=== PATIENT | female | born 1950 | race Caucasian/White ===

== ENCOUNTER → 2023-05-15 10:09 | Outpatient (POV) | payer MEDICARE, OTHER, SELFPAY ==
--- NOTE | 2023-05-15 10:24 | EXP.PAIN.OV ---
HPI Data of Consult Patient: new to practice Consult date: 05/15/23 Requesting Physician: Tabatha Murphy APRN Primary Care Provider: Rei Robison Consult Narrative Reason for consult: Low back pain, bilateral hip pain, leg pain History of present illness: Ms. Iniguez is a 72 year old female who presents today as a new patient. She is a referral from the [facility]. Today she rates her pain a 8 out of 10. Patient denies any specific trauma or injury that has worsened her pain today. Patient states that she is continue to have low back and leg issues along with her hip pain for some time. Patient does describe this as an aching, throbbing sensation that is worse with increased activity or ambulation. Patient does states she has some numbness and tingling into her lower extremities. Patient does state the pain interferes with her ability perform activities of daily living such as cooking and cleaning. Patient has previously had lumbar epidural injections as well as thoracic and SI injections. Patient states that she had good improvement with her epidurals providing more than 50% relief however she states that she feels she is back at her baseline today. Patient does state in the past she has had the SI injections however these did not typically provide as significant relief. Patient is currently managed with meloxicam 15 mg daily, tizanidine 4 mg twice daily as needed from outside providers. Patient denies any side effects from these medications. She does state that the meloxicam she has been on for quite some time and does not feel that it does as significantly as initially. Patient states she has tried Tylenol and ibuprofen along with heat and ice and topicals with minimal relief. Patient does state that she has recently had a bout of cellulitis however this is now healed. Patient states she has had previous imaging done at [facility] however states it has been back in 2021. Patient is interested in any help we may be able to provide. Patient is currently prescribed clonazepam 0.5 mg daily from an outside provider. Her Marcello has been reviewed and is appropriate. CC: Tabatha Murphy APRN [facility] Disclaimer: The information contained in this section may have been updated after the patient was seen, as this information can be updated by other users. Medical History (Updated 05/15/23 @ 13:14 by Tabatha Murphy APRN) Anxiety COPD (chronic obstructive pulmonary disease) DDD (degenerative disc disease), lumbar Depression GERD (gastroesophageal reflux disease) HLD (hyperlipidemia) HTN (hypertension) O2 dependent Surgical History H/O tubal ligation Hx of cholecystectomy Family History (Updated 05/15/23 @ 11:07 by Nikki Salmeron RN) Other Heart disease Social History (Updated 05/15/23 @ 11:08 by Nikki Salmeron RN) Smoking Status: Never smoker alcohol intake: never current occupational status: retired Travel in the last 8 weeks: None Review of Systems Review of Systems Review of systems:: pertinent systems reviewed and negative unless documented below Review of systems (narrative): Review of Systems: General: No recent weight changes, no fever, no sleep disturbances Respiratory: No cough, no shortness of air, no recurring pulmonary infections Cardiovascular/peripheral vascular: No chest pain, no palpitations, no edema, no shortness of breath Gastrointestinal: No new onset incontinence, normal bowel movements reported Genitourinary: No new onset incontinence Musculoskeletal: Low back pain, bilateral hip pain, leg pain Psychiatric: [Normal mood/affect] Neurological: [Denies weakness in extremities], [denies balance issues] Meds Home Medications and Allergies Home Medications Medication Instructions Recorded Confirmed Type albuterol sulfate 90 mcg/actuation 2 inh inhalation QIDP PRN 05/15/23 05/15/23 History aerosol inhaler Breathing Problems atorvastatin 40 mg tablet 40 mg PO DAILY High Cholesterol 05/15/23 05/15/23 History clonazepam 0.5 mg tablet 0.5 mg PO TIDP PRN Anxiety 05/15/23 05/15/23 History duloxetine 60 mg capsule,delayed 60 mg PO DAILY MOOD 05/15/23 05/15/23 History release fluticasone fur. 200 mcg-umeclid 1 inh inhalation DAILY Breathing 05/15/23 05/15/23 History 62.5 mcg-vilant 25 mcg Problems inhalat.powder (Trelegy Ellipta) meloxicam 15 mg tablet 15 mg PO DAILY Pain 05/15/23 05/15/23 History omeprazole 40 mg capsule,delayed 40 mg PO DAILY GERD 05/15/23 05/15/23 History release tizanidine 4 mg tablet 4 mg PO BID Pain 05/15/23 05/15/23 History New Prescriptions to Start Prescriptions: Allergies Allergy/AdvReac Type Severity Reaction Status Date / Time No Known Allergies Allergy Verified 05/15/23 10:36 Objective Narrative: Physical Exam: General: Alert and oriented x3, no acute distress, pleasant and cooperative Lungs: Respirations even and unlabored, symmetrical chest expansion Eyes: PERRL Musculoskeletal: Flexion and extension of lumbar [spine] somewhat guarded secondary to pain, [antalgic gait noted] point tenderness along bilateral SIs with a positive bilateral Nelli's, Rachel's, Gaenslen's, compression and distraction exam, positive bilateral leg raise Neurological: Speech clear, no gross sensory deficit Assessment and Plan *Assessment and plan (1) Degenerative disc disease, thoracic: Status: Acute Category: Medical Code(s): M51.34 - Other intervertebral disc degeneration, thoracic region (2) Lumbar radiculopathy: Status: Acute Category: Medical Code(s): M54.16 - Radiculopathy, lumbar region (3) Bilateral sacroiliitis: Status: Acute Category: Medical Code(s): M46.1 - Sacroiliitis, not elsewhere classified (4) Chronic pain syndrome: Status: Acute Category: Medical Code(s): G89.4 - Chronic pain syndrome Plan Patient is experiencing significant pain in her low back, hips and legs. Patient had limited range of motion of her lumbar spine today along with point tenderness at her bilateral SIs and a positive bilateral Nelli's, Rachel's, Gaenslen's, compression and distraction exam along with positive bilateral leg raises. I have discussed with the patient that she may benefit from a SI injection as well as lumbar epidural steroid injection. Risk and benefits of both of these injections were discussed with the patient and she would like to proceed forward with a lumbar epidural. Patient states that she did not have significant relief with her first SI injection. Patient is not on any blood thinners. I will send in an order of compounded cream. I have also discussed with the patient that I will send in a 5-day dose of prednisone 20 mg twice daily. I did discuss thoroughly with the patient regarding her meloxicam that we could try diclofenac however after additional discussion patient has had a recent episode of altered kidney function that she stated was back in February as well as patient stated that she ended up having a cardiac cath in the past with no acute findings however does state that she has mitral valve prolapse for 50+ years. I have counseled the patient due to these findings I we will call and get a copy of her most recent lab work and I have counseled the patient that I will hold off ordering the diclofenac and that in future it may not be beneficial for her to be on any NSAIDs due to her history of kidney and heart related issues. Patient will be scheduled for an LESI L4-L5 under fluoroscopy. Patient has been instructed to contact the clinic with any concerns before the next appointment. Dr. Ross has reviewed this note and agrees with this plan of care. This note was dictated using voice recognition software and make contain errors or omissions. We did get a copy of her BMP levels that does have her GFR at 88. Although this is within normal limits due to the history of altered kidney function and mitral valve prolapse I will not prescribe any NSAIDs for this patient.
[2023-05-15 10:31] VITALS: BP 143/80; PULSE 80; RESP 18; O2SAT 91; BMI 22.1
== END | disposition home or self-care (01) ==
PROVIDERS: PCP Family Medicine; Visit Provider Nurse Practitioner Family
DX: M51.34 Other intervertebral disc degeneration, thoracic region (principal); M54.16 Radiculopathy, lumbar region; M46.1 Sacroiliitis, not elsewhere classified; G89.4 Chronic pain syndrome
CPT/HCPCS: 99202; G0463

== ENCOUNTER 2023-05-28 09:35 | Day surgery (SDC) | payer MEDICARE, OTHER, SELFPAY ==
[2023-05-28 10:07] VITALS: BP 193/110; PULSE 90; RESP 18; TEMP 36.1; O2SAT 90; BMI 22.1
[2023-05-28 10:41] VITALS: BP 155/101; PULSE 80; RESP 18; O2SAT 92
[2023-05-28] MEDS: methylPREDNISolone ACETATE 80MG/ML VIAL 80 MG (10:41)
[2023-05-28 10:42] VITALS: BP 155/101; PULSE 76; RESP 18; O2SAT 92
[2023-05-28 10:45] VITALS: BP 146/83; PULSE 80; RESP 18; O2SAT 90
--- NOTE | 2023-05-28 10:46 | P.PCN_ITS ---
Procedure Date: 05/28/23 Time: 10:35 Anesthesiologist:: Salazar Barboza CRNA Complications:: None Pre-procedure Diagnosis:: Degenerative disc lumbar spine multilevels. Lumbar radiculopathy. Post-procedure Diagnosis:: Same. Indications for Procedure:: Patient is a pleasant 72-year-old female comes our clinic today for lumbar epidural steroid injection. She has had moderate improvement in terms of her overall low back pain as well as bilateral hip and leg radicular symptoms with previous injections at the L4-5 level. Patient rates her pain today 7/10. Procedure Details:: Procedure: Lumbar epidural steroid injection under fluoroscopy Informed consent was obtained and the risks and benefits of the procedure were explained to the patient. The patient was taken to the procedure room and noninvasive monitors placed, including noninvasive blood pressure cuff and pulse oximeter. The back was viewed using C-arm Fluoroscopy and prepped using Chloraprep as a cleansing solution and the L4-L5 interspace was palpated. Skin and subcutaneous tissues were anesthetized using lidocaine 1.5% and a 25-gauge needle. After this, an 18-gauge Touhy epidural needle was placed into the L4-L5 interspace and advanced using fluoroscopic guidance and loss of resistance to air until the epidural space was encountered. After confirmation of needle placement in the epidural space, with dye, a solution containing normal saline, 3 mL and Depo-Medrol 80 mg were incrementally injected into the lumbar epidural space. The patient tolerated the procedure well with no complications. The patient was observed in the Pain Clinic and then discharged home neur ologically intact. Plan and Disposition:: Patient was discharged without incident.
== END 2023-05-28 10:45 | disposition home or self-care (01) ==
PROVIDERS: PCP Family Medicine; Visit Provider Nurse Anesthetist, Certified Registered
DX: M51.16 Intervertebral disc disorders with radiculopathy, lumbar region (principal)
CPT/HCPCS: 62323; J1040

== ENCOUNTER → 2023-06-12 13:01 | Outpatient (POV) | payer MEDICARE, OTHER, SELFPAY ==
--- NOTE | 2023-06-12 13:09 | EXP.PAIN.SOA ---
[facility] Pain Management SOAP Note Subjective:: Patient is a pleasant 72-year-old female who presents today for follow-up of lumbar epidural steroid injection L4-L5 on 05/28/2023. We are currently treating the patient for degenerative disc disease of thoracic spine with lumbar radiculopathy symptoms, chronic pain syndrome, bilateral sacroiliitis. Today she rates her pain a 7 out of 10. Patient states that she did have at least 50% from this injection however she has been experiencing more pain in and around her hips and low back. She describes it as an aching, throbbing sensation and denies any radiating symptoms down her legs. She states the pain does interfere with her ability perform activities of daily living such as cooking and cleaning. She states the pain is worse with increased activity or prolonged positioning. At our last visit she did have significant findings for bilateral sacroiliitis. We had discussed doing these injections after her lumbar epidural and she does state that she is interested in this option. Patient did get the compounded cream that was prescribed to her and states that it did significantly help. Her Marcello has been reviewed and is appropriate. Review of Systems: General: No recent weight changes, no fever, no sleep disturbances Respiratory: No cough, no shortness of air, no recurring pulmonary infections Cardiovascular/peripheral vascular: No chest pain, no palpitations, no edema, no shortness of breath Gastrointestinal: No new onset incontinence, normal bowel movements reported Genitourinary: No new onset incontinence Musculoskeletal: Low back pain, bilateral hip pain Psychiatric: [Normal mood/affect] Neurological: [Denies weakness in extremities], [denies balance issues] Objective:: Physical Exam: General: Alert and oriented x3, no acute distress, pleasant and cooperative Lungs: Respirations even and unlabored, symmetrical chest expansion Eyes: PERRL Musculoskeletal: Flexion and extension of lumbar [spine] somewhat guarded secondary to pain, [antalgic gait noted] extreme point tenderness along bilateral SIs with positive bilateral Nelli's, Rachel's, Gaenslen's, compression and distraction exam Neurological: Speech clear, no gross sensory deficit Assessment:: Degenerative disc disease of thoracic and lumbar spine with thoracic and lumbar radiculopathy symptoms, sacroiliitis, chronic pain syndrome Plan:: Patient is experiencing significant pain in her low back along her bilateral hips. Patient did have extreme point tenderness of her bilateral SIs with a positive bilateral Nelli's, Rachel's, Gaenslen's, compression and distraction exam. I have discussed with the patient that she may benefit from bilateral SI injections. Risk and benefits were discussed with patient and she would like to proceed forward with this plan of care. Patient will be scheduled for bilateral SI injections under fluoroscopy. Patient has been instructed to contact the clinic with any concerns before the next appointment. Dr. Ross has reviewed this note and agrees with this plan of care. This note was dictated using voice recognition software and make contain errors or omissions. [facility] Disclaimer: The information contained in this section may have been updated after the patient was seen, as this information can be updated by other users. Medical History Anxiety COPD (chronic obstructive pulmonary disease) DDD (degenerative disc disease), lumbar Depression GERD (gastroesophageal reflux disease) HLD (hyperlipidemia) HTN (hypertension) O2 dependent Surgical History H/O tubal ligation Hx of cholecystectomy Family History Other Heart disease Social History Smoking Status: Never smoker alcohol intake: never current occupational status: other Travel in the last 8 weeks: None
[2023-06-12 13:15] VITALS: BP 104/51; PULSE 77; RESP 20; O2SAT 93; BMI 25.4
== END ==
PROVIDERS: PCP Family Medicine; Visit Provider Nurse Practitioner Family
DX: M51.14 Intervertebral disc disorders with radiculopathy, thoracic region (principal); M51.16 Intervertebral disc disorders with radiculopathy, lumbar region; M46.1 Sacroiliitis, not elsewhere classified; G89.4 Chronic pain syndrome
CPT/HCPCS: 99212; G0463

== ENCOUNTER 2023-07-02 13:24 | Day surgery (SDC) | payer MEDICARE, OTHER, SELFPAY ==
[2023-07-02 14:08] VITALS: BP 125/68; PULSE 84; RESP 18; TEMP 36.8; O2SAT 92; BMI 22.1
[2023-07-02 14:18] VITALS: BP 137/66; PULSE 86; RESP 18; O2SAT 93
[2023-07-02] MEDS: BUPIVACAINE 0.25% 10ML INJ 25 MG IJ (14:18)
[2023-07-02] MEDS: methylPREDNISolone ACETATE 80MG/ML VIAL 80 MG (14:18)
[2023-07-02] MEDS: LIDOCAINE 1% 5ML PF VIAL 5 ML (14:18)
[2023-07-02 14:19] VITALS: BP 137/66; PULSE 81; RESP 18; O2SAT 93
[2023-07-02 14:25] VITALS: BP 133/68; PULSE 80; RESP 18; O2SAT 92
--- NOTE | 2023-07-02 14:47 | P.PCN_ITS ---
Procedure Date: 07/02/23 Time: 14:40 Anesthesiologist:: Salazar Barboza CRNA Complications:: None Pre-procedure Diagnosis:: Bilateral sacroiliitis. Post-procedure Diagnosis:: Same. Indications for Procedure:: Patient is a very pleasant 72-year-old female comes our clinic today for bilateral sacroiliac joint injection. Patient reporting bilateral posterior hip pain as constant, dull, aching. Upon examination she has extreme point tenderness over the bilateral sacroiliac joints. She rates her pain 8/10. Procedure Details:: Procedure: Bilateral sacroiliac joint injections under fluoroscopy Informed consent was obtained and the risks and benefits of the procedure were explained to the patient.~ The patient was taken to the procedure room and noninvasive monitors were placed including a noninvasive blood pressure cuff and pulse oximeter.~ The patient was placed prone on the procedure table. Both hips were cleansed using Betadine as a cleansing solution. C-arm fluoroscopy was used to view the right sacroiliac joint.~ The skin and subcutaneous tissues were anesthetized using lidocaine 1.5% and a 25-gauge needle.~ After this, a 22-gauge spinal needle was inserted under fluoroscopic guidance into the inferior aspect of the right sacroiliac joint.~ Omnipaque dye was injected and good spread was seen throughout the joint.~ After this, approximately 5 mL of bupivacaine, 0.25% and Depo-Medrol, 40 mg was incrementally injected into the right sacroiliac joint. We then moved to the left sacroiliac joint.~ The skin and subcutaneous tissues were anesthetized using lidocaine 1.5% and a 25-gauge needle.~ After this, a 22- gauge spinal needle was inserted under fluoroscopic guidance into the inferior aspect of the left sacroiliac joint.~ Omnipaque dye was injected and good spread was seen throughout the joint. After this, approximately 5 mL of bupivacaine, 0.25% and Depo-Medrol, 40 mg was incrementally injected into the left sacroiliac joint.~ The patient tolerated the procedure well with no complications. The patient was observed in the Pain Clinic and then was discharged home neurologically intact. Plan and Disposition:: Patient was discharged without incident.
== END 2023-07-02 14:25 | disposition home or self-care (01) ==
LOC: SC.PAINP 13:26
PROVIDERS: PCP Family Medicine; Visit Provider Nurse Anesthetist, Certified Registered
DX: M46.1 Sacroiliitis, not elsewhere classified (principal)
CPT/HCPCS: 27096; 77002; G0260; J1040

== ENCOUNTER 2023-07-17 08:33 | Outpatient (POV) | payer MEDICARE, OTHER, SELFPAY ==
[2023-07-17 09:02] VITALS: BP 146/76; PULSE 77; RESP 18; O2SAT 92; BMI 22.6
--- NOTE | 2023-07-17 09:29 | A.OFFVIS_ITS ---
[facility] Pain Management SOAP Note Subjective:: Patient is a pleasant 72-year-old female who presents today for follow-up of bilateral SI injections on 07/02/2023. Today she rates her pain at 3 out of 10. She states she has had at least 80% improvement following this injection and feels like it still helping. Patient states that the low back pain has completely gone and that she really just has more tenderness in and around her hips and her buttocks but it is not as severe. She states that it only flares up when she is up doing activity for a long period of time. She states that she did make a 7 layer salad for [employer] and that her hips and buttocks did start to hurt but she went and sat down and it did relieve her overall symptoms. Patient does state that she feels much more functional following this injection. She is prescribed compounded cream and she states this helps as well. Her Marcello has been reviewed and is appropriate. Review of Systems: General: No recent weight changes, no fever, no sleep disturbances Respiratory: No cough, no shortness of air, no recurring pulmonary infections Cardiovascular/peripheral vascular: No chest pain, no palpitations, no edema, no shortness of breath Gastrointestinal: No new onset incontinence, normal bowel movements reported Genitourinary: No new onset incontinence Musculoskeletal: Hip pain, buttocks pain Psychiatric: [Normal mood/affect] Neurological: [Denies weakness in extremities], [denies balance issues] Objective:: Physical Exam: General: Alert and oriented x3, no acute distress, pleasant and cooperative Lungs: Respirations even and unlabored, symmetrical chest expansion Eyes: PERRL Musculoskeletal: Flexion and extension of lumbar [spine] somewhat guarded secondary to pain, [antalgic gait noted] Neurological: Speech clear, no gross sensory deficit Assessment:: Degenerative disc disease of lumbar spine with lumbar radiculopathy symptoms, chronic pain syndrome, bilateral sacroiliitis Plan:: Patient has had significant improvement following her SI injections and does not require any additional injection therapy at this time. Patient will return to clinic in 1 month for reevaluation of symptoms and plan of care. Patient has been instructed to contact the clinic with any concerns before the next appointment. Dr. Ross has reviewed this note and agrees with this plan of care. This note was dictated using voice recognition software and make contain errors or omissions. [facility] Disclaimer: The information contained in this section may have been updated after the patient was seen, as this information can be updated by other users. Medical History COPD (chronic obstructive pulmonary disease) O2 dependent DDD (degenerative disc disease), lumbar Anxiety GERD (gastroesophageal reflux disease) HLD (hyperlipidemia) Depression HTN (hypertension) Surgical History Hx of cholecystectomy H/O tubal ligation Family History Other Heart disease Social History Smoking Status: Never smoker alcohol intake: never current occupational status: retired Travel in the last 8 weeks: None
== END 2023-07-17 23:59 ==
PROVIDERS: PCP Family Medicine; Visit Provider Nurse Practitioner Family
DX: M46.1 Sacroiliitis, not elsewhere classified (principal); M51.16 Intervertebral disc disorders with radiculopathy, lumbar region; G89.4 Chronic pain syndrome
CPT/HCPCS: 99212; G0463

== ENCOUNTER 2023-08-15 10:22 | Outpatient (POV) | payer MEDICARE, OTHER, SELFPAY ==
[2023-08-15 10:51] VITALS: BP 172/78; PULSE 63; RESP 18; O2SAT 95; BMI 22.4
--- NOTE | 2023-08-15 11:45 | A.OFFVIS_ITS ---
[facility] Pain Management SOAP Note Subjective:: Patient is a pleasant 72-year-old female who presents today for follow-up. Today she rates her pain a 5 out of 10. Patient states she continues to have chronic pain in her low back and some in her legs. Patient does state that she was recently hospitalized for acute respiratory failure. Patient states she is now currently on continuous O2 whereas before she was just at night. Patient states that that she feels like this all stems from her illness with COVID back in November and then pneumonia later around . Patient states that she went to 5 different providers complaint and stated the exact reason for why this flared up requiring her to be hospitalized. Patient does state that she is starting to feel better however with her current low back and leg pain that she is trying to get more improvement for an upcoming trip out of state for her granddaughters graduation. Patient states this is a [address] and she notes her overall back issues will be worse with this. Patient does state her pain is an aching, throbbing sensation with numbness and tingling into her legs. Patient does state the pain interferes with her ability perform activities of daily living. Patient did just get bilateral SI injections back in the middle of June that did provide 80% relief. Patient is prescribed compounded cream and states this does still help some. Her Marcello has been reviewed and is appropriate. Review of Systems: General: No recent weight changes, no fever, no sleep disturbances Respiratory: No cough, no shortness of air, no recurring pulmonary infections Cardiovascular/peripheral vascular: No chest pain, no palpitations, no edema, no shortness of breath Gastrointestinal: No new onset incontinence, normal bowel movements reported Genitourinary: No new onset incontinence Musculoskeletal: Low back pain, leg pain Psychiatric: [Normal mood/affect] Neurological: [Denies weakness in extremities], [denies balance issues] Objective:: Physical Exam: General: Alert and oriented x3, no acute distress, pleasant and cooperative Lungs: Respirations even and unlabored, symmetrical chest expansion Eyes: PERRL Musculoskeletal: Flexion and extension of lumbar [spine] somewhat guarded secondary to pain, [antalgic gait noted] Neurological: Speech clear, no gross sensory deficit Assessment:: Degenerative disc disease of lumbar spine with lumbar radiculopathy symptoms, chronic pain syndrome, bilateral sacroiliitis Plan:: Patient is experiencing worsening pain in her low back and legs with limited range of motion. I discussed with patient that she may benefit from a lumbar epidural steroid injection. Risk and benefits were discussed with patient and she would like to proceed forward with this plan of care. Patient is not on any blood thinners. We will schedule the patient for LESI L4-L5 under fluoroscopy. Patient has tried and failed conservative therapy such as oral medication, heat and ice, topicals, physical therapy, continued at home stretching exercise for longer than 6 weeks. Patient has been instructed to contact the clinic with any concerns before the next appointment. Dr. Ross has reviewed this note and agrees with this plan of care. This note was dictated using voice recognition software and make contain errors or omissions. [facility] Disclaimer: The information contained in this section may have been updated after the patient was seen, as this information can be updated by other users. Medical History COPD (chronic obstructive pulmonary disease) O2 dependent DDD (degenerative disc disease), lumbar Anxiety GERD (gastroesophageal reflux disease) HLD (hyperlipidemia) Depression HTN (hypertension) Surgical History Hx of cholecystectomy H/O tubal ligation Family History Other Heart disease Social History Smoking Status: Never smoker alcohol intake: never current occupational status: retired Travel in the last 8 weeks: None
== END 2023-08-15 23:59 | disposition home or self-care (01) ==
LOC: SC.PAIN 10:23
PROVIDERS: PCP Family Medicine; Visit Provider Nurse Practitioner Family
DX: M51.16 Intervertebral disc disorders with radiculopathy, lumbar region (principal); G89.4 Chronic pain syndrome; M46.1 Sacroiliitis, not elsewhere classified
CPT/HCPCS: 99212; G0463

== ENCOUNTER 2023-09-03 10:52 | Day surgery (SDC) | payer MEDICARE, OTHER, SELFPAY ==
[2023-09-03 11:18] VITALS: BP 156/76; PULSE 98; RESP 20; O2SAT 91; BMI 22.4
[2023-09-03] MEDS: methylPREDNISolone ACETATE 80MG/ML VIAL 80 MG (11:28)
--- NOTE | 2023-09-03 11:29 | EXP.PAIN.PRO ---
Procedure Date: 09/03/23 Time: 11:30 Anesthesiologist:: Salazar Barboza CRNA Complications:: None Pre-procedure Diagnosis:: Degenerative disc lumbar spine multilevels. Lumbar radiculopathy. Lumbar spondylosis. Multilevel lumbar facet arthropathy. Post-procedure Diagnosis:: Same. Indications for Procedure:: Patient is a very pleasant 72-year-old female comes our clinic today for lumbar epidural steroid injections L4-5 level. Patient reports low back pain she describes as constant, dull, aching. She rates her pain 7/10. Patient also reports some bilateral hip and leg radicular symptoms at times. Procedure Details:: Procedure: Lumbar epidural steroid injection under fluoroscopy Informed consent was obtained and the risks and benefits of the procedure were explained to the patient. The patient was taken to the procedure room and noninvasive monitors placed, including noninvasive blood pressure cuff and pulse oximeter. The back was viewed using C-arm Fluoroscopy and prepped using Chloraprep as a cleansing solution and the L4-L5 interspace was palpated. Skin and subcutaneous tissues were anesthetized using lidocaine 1.5% and a 25-gauge needle. After this, an 18-gauge Touhy epidural needle was placed into the L4-L5 interspace and advanced using fluoroscopic guidance and loss of resistance to air until the epidural space was encountered. After confirmation of needle placement in the epidural space, with dye, a solution containing normal saline, 3 mL and Depo-Medrol 80 mg were incrementally injected into the lumbar epidural space. The patient tolerated the procedure well with no complications. The patient was observed in the Pain Clinic and then discharged home neurologically intact. Plan and Disposition:: Patient was discharged without incident.
[2023-09-03 11:34] VITALS: BP 140/72; PULSE 83; RESP 18; O2SAT 91
[2023-09-03 11:35] VITALS: BP 124/68; PULSE 85; RESP 18; O2SAT 97
[2023-09-03 11:36] VITALS: BP 124/68; PULSE 85; RESP 18; O2SAT 97
== END 2023-09-03 11:34 | disposition home or self-care (01) ==
PROVIDERS: PCP Family Medicine; Visit Provider Nurse Anesthetist, Certified Registered
DX: M51.16 Intervertebral disc disorders with radiculopathy, lumbar region (principal); M47.26 Other spondylosis with radiculopathy, lumbar region
CPT/HCPCS: 62323; J1010

== ENCOUNTER 2023-09-23 10:42 | Outpatient (POV) | payer MEDICARE, OTHER, SELFPAY ==
[2023-09-23 11:19] VITALS: BP 140/68; PULSE 79; RESP 20; O2SAT 88; BMI 22.8
--- NOTE | 2023-09-23 12:10 | A.OFFVIS_ITS ---
[facility] Pain Management SOAP Note Subjective:: Patient is a pleasant 72-year-old female who presents today for follow-up of lumbar epidural steroid injection L4-L5 on 09/03/2023. Today she rates her pain an 8 out of 10. Patient denies any new trauma or injury. She does state that she did have approximately 75 to 80% relief following this injection however it only really lasted about a week and a half. Patient does state that she is back to her baseline today and is also experiencing worsening pain across her hips. Patient describes this pain as an aching sensation that is tender to touch and does affect her ability to perform activities of daily living such as cooking and cleaning. Patient states that frequently she has to stop and sit down and take breaks due to the chronic pain. 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 Her Marcello has been reviewed and is appropriate. Review of Systems: General: No recent weight changes, no fever, no sleep disturbances Respiratory: No cough, no shortness of air, no recurring pulmonary infections Cardiovascular/peripheral vascular: No chest pain, no palpitations, no edema, no shortness of breath Gastrointestinal: No new onset incontinence, normal bowel movements reported Genitourinary: No new onset incontinence Musculoskeletal: Bilateral hip pain Psychiatric: [Normal mood/affect] Neurological: [Denies weakness in extremities], [denies balance issues] Objective:: Physical Exam: General: Alert and oriented x3, no acute distress, pleasant and cooperative Lungs: Respirations even and unlabored, symmetrical chest expansion Eyes: PERRL Musculoskeletal: Flexion and extension of lumbar [spine] somewhat guarded secondary to pain, [antalgic gait noted] point tenderness along bilateral great er trochanteric bursa's Neurological: Speech clear, no gross sensory deficit Assessment:: Degenerative disc disease of lumbar spine with lumbar radiculopathy symptoms, sacroiliitis, bilateral greater trochanteric bursitis Plan:: Patient is experiencing worsening pain in her bilateral hips with point tenderness to touch along her greater trochanteric bursa's and limited range of motion of her lumbar spine. I did discuss with patient that she may benefit from bursa injections along these areas. Risk and benefits were discussed with patient and she would like to proceed forward with this plan of care. Patient has tried and failed conservative therapy with continued exercise in between injections. We will submit to insurance for the bilateral greater trochanteric bursa injections. Patient has been instructed to contact the clinic with any concerns before the next appointment. Dr. Ross has reviewed this note and agrees with this plan of care. This note was dictated using voice recognition software and make contain errors or omissions. [facility] Disclaimer: The information contained in this section may have been updated after the patient was seen, as this information can be updated by other users. Medical History COPD (chronic obstructive pulmonary disease) O2 dependent DDD (degenerative disc disease), lumbar Anxiety GERD (gastroesophageal reflux disease) HLD (hyperlipidemia) Depression HTN (hypertension) Surgical History Hx of cholecystectomy H/O tubal ligation Family History Other Heart disease Social History Smoking Status: Never smoker alcohol intake: never current occupational status: retired Travel in the last 8 weeks: None
== END 2023-09-23 23:59 | disposition home or self-care (01) ==
LOC: SC.PAIN 10:43
PROVIDERS: PCP Family Medicine; Visit Provider Nurse Practitioner Family
DX: M51.16 Intervertebral disc disorders with radiculopathy, lumbar region (principal); M46.1 Sacroiliitis, not elsewhere classified; M70.61 Trochanteric bursitis, right hip; M70.62 Trochanteric bursitis, left hip
CPT/HCPCS: 99212; G0463

== ENCOUNTER 2023-10-08 13:20 | Day surgery (SDC) | payer MEDICARE, OTHER, SELFPAY ==
[2023-10-08 13:55] VITALS: BP 147/87; PULSE 76; RESP 16; TEMP 36.7; O2SAT 92; BMI 23.3
--- NOTE | 2023-10-08 14:05 | P.PCN_ITS ---
Procedure Date: 10/08/23 Time: 13:55 Anesthesiologist:: Salazar Barboza CRNA Complications:: None Pre-procedure Diagnosis:: Bilateral trochanteric bursitis. Post-procedure Diagnosis:: Same. Indications for Procedure:: Patient is a pleasant 72-year-old female comes to clinic today for bilateral trochanteric bursa injection of cortisone. Patient has extreme point tenderness over the lateral hips. She describes the pain as constant, dull, sharp, stabbing. She rates her pain 8/10. Procedure Details:: Procedure: Bilateral trochanteric bursa joint injections under fluoroscopy Informed consent was obtained and the risks and benefits of the procedure were explained to the patient.~ The patient was taken to the procedure room and noninvasive monitors were placed including a noninvasive blood pressure cuff and pulse oximeter.~ The patient was placed prone on the procedure table. Both hips were cleansed using Betadine as a cleansing solution. C-arm fluoroscopy was used to view the right trochanteric bursa joint.~ The skin and subcutaneous tissues were anesthetized using lidocaine 1.5% and a 25-gauge needle.~ After this, a 22- gauge spinal needle was inserted under fluoroscopic guidance into the inferior aspect of the right trochanteric bursa.~ Omnipaque dye was injected and good spread was seen throughout the joint.~ After this, approximately 5 mL of bupivacaine, 0.25% and Depo-Medrol, 40 mg was incrementally injected into the r ight sacroiliac joint. We then moved to the left trochanteric bursa joint.~ The skin and subcutaneous tissues were anesthetized using lidocaine 1.5% and a 25-gauge needle.~ After this, a 22-gauge spinal needle was inserted under fluoroscopic guidance into the inferior aspect of the left trochanteric bursa joint.~ Omnipaque dye was injected and good spread was seen throughout the joint. After this, approximately 5 mL of bupivacaine, 0.25% and Depo-Medrol, 40 mg was incrementally injected into the left sacroiliac joint.~ The patient tolerated the procedure well with no complications. The patient was observed in the Pain Clinic and then was discharged home neurologically intact. Plan and Disposition:: Patient was discharged without incident.
[2023-10-08 14:10] VITALS: BP 147/69; PULSE 75; RESP 18; O2SAT 98
[2023-10-08 14:29] VITALS: BP 173/85; PULSE 74; RESP 18; O2SAT 95
[2023-10-08] MEDS: LIDOCAINE 1% 5ML PF VIAL 5 ML (14:29)
[2023-10-08] MEDS: methylPREDNISolone ACETATE 80MG/ML VIAL 80 MG (14:29)
[2023-10-08] MEDS: BUPIVACAINE 0.25% 10ML INJ 25 MG IJ (14:29)
[2023-10-08 14:31] VITALS: BP 173/85; PULSE 74; RESP 18; O2SAT 95
== END 2023-10-08 14:11 | disposition home or self-care (01) ==
PROVIDERS: PCP Family Medicine; Visit Provider Nurse Anesthetist, Certified Registered
DX: M70.61 Trochanteric bursitis, right hip (principal); M70.62 Trochanteric bursitis, left hip
CPT/HCPCS: 20610; 77002; J1010

== ENCOUNTER 2023-11-04 10:38 | Outpatient (POV) | payer MEDICARE, OTHER, SELFPAY ==
[2023-11-04 10:58] VITALS: BP 143/74; PULSE 82; RESP 18; O2SAT 93; BMI 23.4
--- NOTE | 2023-11-04 11:35 | EXP.PAIN.SOA ---
[facility] Disclaimer: The information contained in this section may have been updated after the patient was seen, as this information can be updated by other users. Medical History COPD (chronic obstructive pulmonary disease) O2 dependent DDD (degenerative disc disease), lumbar Anxiety GERD (gastroesophageal reflux disease) HLD (hyperlipidemia) Depression HTN (hypertension) Surgical History Hx of cholecystectomy H/O tubal ligation Family History Other Heart disease Social History Smoking Status: Never smoker alcohol intake: never current occupational status: other Travel in the last 8 weeks: None PM Subjective & Objective Subjective Subjective:: Patient is a pleasant 72-year-old female who presents today for follow-up bilateral trochanteric bursa injections on 10/08/2023. Today she rates her pain a 7 out of 10. Patient denies any new trauma or injury. She does state that the injections did help some however she would only rated about 20%. Patient does state that she has still a lot of tenderness in and around her hips however feels like overall the low back and buttocks/groin pain is really bothersome. She describes it as an aching sensation with some tingling and feels like it has a grabbing sensation. Patient states due to the pain that she cannot even do the simplest activities of cooking and cleaning. Patient states that she loves to cook and has not been able to do this for some time. Her Marcello has been reviewed and is appropriate. Review of Systems: General: No recent weight changes, no fever, no sleep disturbances Respiratory: No cough, no shortness of air, no recurring pulmonary infections Cardiovascular/peripheral vascular: No chest pain, no palpitations, no edema, no shortness of breath Gastrointestinal: No new onset incontinence, normal bowel movements reported Genitourinary: No new onset incontinence Musculoskeletal: Low back pain, bilateral hip pain, buttocks pain, groin pain Psychiatric: [Normal mood/affect] Neurological: [Denies weakness in extremities], [denies balance issues] Pain at rest (0-10 scale): 7 Objective Objective:: Physical Exam: General: Alert and oriented x3, no acute distress, pleasant and cooperative Lungs: Respirations even and unlabored, symmetrical chest expansion Eyes: PERRL Musculoskeletal: Flexion and extension of lumbar [spine] somewhat guarded secondary to pain, [antalgic gait noted] point tenderness along bilateral SIs with positive bilateral Nelli's, Rachel's, Gaenslen's, compression and distraction exam Neurological: Speech clear, no gross sensory deficit Has patient had previous pain injection?: Yes Percent improvement in pain since last injection: 20% Conservative treatment options previously tried: Home exercise plan Length of treatment: Longer than 6 weeks and Prescription medications Length of treatment: Longer than 6 weeks Meds Home Medications and Allergies Home Medications Medication Instructions Recorded Confirmed Type albuterol sulfate 90 mcg/actuation 2 inh inhalation QIDP PRN 05/15/23 11/04/23 History aerosol inhaler Breathing Problems atorvastatin 40 mg tablet 40 mg PO DAILY High Cholesterol 05/15/23 11/04/23 History clonazepam 0.5 mg tablet 0.5 mg PO TIDP PRN Anxiety 05/15/23 11/04/23 History duloxetine 60 mg capsule,delayed 60 mg PO DAILY MOOD 05/15/23 11/04/23 History release meloxicam 15 mg tablet 15 mg PO DAILY Pain 05/15/23 11/04/23 History omeprazole 40 mg capsule,delayed 40 mg PO DAILY GERD 05/15/23 11/04/23 History release prednisone 20 mg tablet 20 mg PO BID #10 tabs 05/15/23 11/04/23 Rx tizanidine 4 mg tablet 4 mg PO BID Pain 05/15/23 11/04/23 History budesonide 160 mcg-glycopyr 9 2 puff inhalation BID Breathing 09/23/23 11/04/23 History mcg-formot 4.8 mcg/actuation HFA Problems inhaler (Breztri Aerosphere) ipratropium bromide 0.02 % 2.5 ml inhalation Q4HP PRN 09/23/23 11/04/23 History solution for inhalation Breathing Problems New Prescriptions to Start Prescriptions: Allergies Allergy/AdvReac Type Severity Reaction Status Date / Time No Known Allergies Allergy Verified 11/04/23 10:59 Assessment and Plan *Assessment and plan (1) Bilateral sacroiliitis: Status: Acute Category: Medical Code(s): M46.1 - Sacroiliitis, not elsewhere classified Plan Patient is experiencing significant pain throughout her low back and hips including her buttocks and groin area. Patient did have extreme point tenderness along her bilateral SIs with positive bilateral Nelli's, Rachel's, Gaenslen's, compression and distraction exam. I have discussed with the patient that she may benefit from bilateral SI injections. Risk and benefits were discussed with the patient and she would like to proceed forward with this plan of care. Patient has previously had these injections in the past with her last ones being on July 01 that provided at least 80% improvement and even going towards the 100% of the pain in her hips. Patient did have improved function with decreased pain following these injections and that it did last for several months. Patient states at least 3 months of significant improvement and feels like it is just been worsening the last few weeks. We will submit to insurance for bilateral SI injections under fluoroscopy. Patient has been instructed to contact the clinic with any concerns before the next appointment. Dr. Ross has reviewed this note and agrees with this plan of care. This note was dictated using voice recognition software and make contain errors or omissions.
== END 2023-11-04 23:59 | disposition home or self-care (01) ==
LOC: SC.PAIN 10:38
PROVIDERS: PCP Family Medicine; Visit Provider Nurse Practitioner Family
DX: M46.1 Sacroiliitis, not elsewhere classified (principal)
CPT/HCPCS: 99212; G0463

== ENCOUNTER 2023-11-12 08:43 | Day surgery (SDC) | payer MEDICARE, OTHER, SELFPAY ==
[2023-11-12 08:58] VITALS: BP 133/75; PULSE 83; RESP 18; TEMP 36.4; O2SAT 90; BMI 23.9
[2023-11-12 09:18] VITALS: BP 131/75; PULSE 79; RESP 18; O2SAT 92
[2023-11-12] MEDS: LIDOCAINE 1% 5ML PF VIAL 5 ML (09:18)
[2023-11-12] MEDS: methylPREDNISolone ACETATE 80MG/ML VIAL 80 MG (09:18)
[2023-11-12] MEDS: BUPIVACAINE 0.25% 10ML INJ 25 MG IJ (09:18)
[2023-11-12 09:20] VITALS: BP 131/75; PULSE 76; RESP 18; O2SAT 94
--- NOTE | 2023-11-12 09:22 | P.PCN_ITS ---
Procedure Date: 11/12/23 Time: 09:10 Anesthesiologist:: Salazar Barboza CRNA Complications:: None Pre-procedure Diagnosis:: Degenerative disc lumbar spine multilevels. Lumbar radiculopathy. Lumbar spondylosis. Bilateral sacroiliitis. Post-procedure Diagnosis:: Same. Indications for Procedure:: Patient is a pleasant 72-year-old female comes to clinic today for bilateral sacroiliac joint injections of cortisone. Patient describes low back pain as constant, dull, aching. For the most part it is off the midline bilaterally. Also, bilateral posterior hip pain. Upon examination she has extreme point tenderness over the bilateral sacroiliac joints. She rates her pain 7/10. Procedure Details:: Procedure: Bilateral sacroiliac joint injections under fluoroscopy Informed consent was obtained and the risks and benefits of the procedure were explained to the patient.~ The patient was taken to the procedure room and noninvasive monitors were placed including a noninvasive blood pressure cuff and pulse oximeter.~ The patient was placed prone on the procedure table. Both hips were cleansed using Betadine as a cleansing solution. C-arm fluoroscopy was used to view the right sacroiliac joint.~ The skin and subcutaneous tissues were a nesthetized using lidocaine 1.5% and a 25-gauge needle.~ After this, a 22-gauge spinal needle was inserted under fluoroscopic guidance into the inferior aspect of the right sacroiliac joint.~ Omnipaque dye was injected and good spread was seen throughout the joint.~ After this, approximately 5 mL of bupivacaine, 0.25% and Depo-Medrol, 40 mg was incrementally injected into the right sacroiliac join t. We then moved to the left sacroiliac joint.~ The skin and subcutaneous tissues were anesthetized using lidocaine 1.5% and a 25-gauge needle.~ After this, a 22- gauge spinal needle was inserted under fluoroscopic guidance into the inferior aspect of the left sacroiliac joint.~ Omnipaque dye was injected and good spread was seen throughout the joint. After this, approximately 5 mL of bupivacaine, 0.25% and Depo-Medrol, 40 mg was incrementally injected into the left sacroiliac joint.~ The patient tolerated the procedure well with no complications. The patient was observed in the Pain Clinic and then was discharged home neurologically intact. Plan and Disposition:: Patient was discharged without incident.
[2023-11-12 09:25] VITALS: BP 136/77; PULSE 78; RESP 18; O2SAT 90
== END 2023-11-12 09:26 | disposition home or self-care (01) ==
PROVIDERS: PCP Family Medicine; Visit Provider Nurse Anesthetist, Certified Registered
DX: M46.1 Sacroiliitis, not elsewhere classified (principal)
CPT/HCPCS: 27096; G0260; J1010

== ENCOUNTER 2023-12-04 08:36 | Outpatient (POV) | payer MEDICARE, OTHER, SELFPAY ==
[2023-12-04 09:14] VITALS: BP 171/90; PULSE 74; RESP 16; O2SAT 93; BMI 24.6
--- NOTE | 2023-12-04 09:45 | A.OFFVIS_ITS ---
[facility] Disclaimer: The information contained in this section may have been updated after the patient was seen, as this information can be updated by other users. Medical History (Updated 12/04/23 @ 09:52 by Tabatha Murphy APRN) COPD (chronic obstructive pulmonary disease) O2 dependent DDD (degenerative disc disease), lumbar Anxiety GERD (gastroesophageal reflux disease) HLD (hyperlipidemia) Depression HTN (hypertension) Surgical History Hx of cholecystectomy H/O tubal ligation Family History Other Heart disease Social History Smoking Status: Never smoker alcohol intake: never current occupational status: unemployed Travel in the last 8 weeks: None PM Subjective & Objective Subjective Subjective:: Patient is a pleasant 73-year-old female who presents today for follow-up of bilateral SI injections. Today she rates her pain a 6 out of 10. Patient denies any new trauma or injury. She does state that she is still experiencing worsening pain throughout her low back and bilateral hips. Patient does state that these injections did seem to help providing 80% relief lasting 10 days. Patient does state that she is back to her baseline today. She states it is a constant aching, throbbing sensation with certain movements such as standing or walking as well as bending, twisting or lifting. Patient does state that she has chronic leg cramping as well and does have a history of Raynaud's in her hands. Patient does state that the leg cramping seems to be most prominent at night. Patient does state that she is interested in any help we can provide as she continues to have the worsening pain and difficulty moving around. Patient does state that she is starting to try and walk from time to time using her rollator however being on the continuous O2 it does make it a little bit more difficult. Her Marcello has been reviewed and is appropriate. Review of Systems: General: No recent weight changes, no fever, no sleep disturbances Respiratory: No cough, no shortness of air, no recurring pulmonary infections Cardiovascular/peripheral vascular: No chest pain, no palpitations, no edema, no shortness of breath Gastrointestinal: No new onset incontinence, normal bowel movements reported Genitourinary: No new onset incontinence Musculoskeletal: Low back pain, hip pain, leg cramping Psychiatric: [Normal mood/affect] Neurological: [Denies weakness in extremities], [denies balance issues] Pain at rest (0-10 scale): 6 Objective Objective:: Physical Exam: General: Alert and oriented x3, no acute distress, pleasant and cooperative Lungs: Respirations even and unlabored, symmetrical chest expansion Eyes: PERRL Musculoskeletal: Flexion and extension of lumbar [spine] somewhat guarded secondary to pain, [antalgic gait noted] positive Kemps test Neurological: Speech clear, no gross sensory deficit Has patient had previous pain injection?: Yes Percent improvement in pain since last injection: 80% Conservative treatment options previously tried: Home exercise plan Length of treatment: Longer than 6 weeks Meds Home Medications and Allergies Home Medications ?Medication ?Instructions ?Recorded ?Confirmed ?Type albuterol sulfate 90 mcg/actuation 2 inh inhalation QIDP PRN 05/15/23 12/04/23 History aerosol inhaler Breathing Problems atorvastatin 40 mg tablet 40 mg PO DAILY High Cholesterol 05/15/23 12/04/23 History clonazepam 0.5 mg tablet 0.5 mg PO TIDP PRN Anxiety 05/15/23 12/04/23 History duloxetine 60 mg capsule,delayed 60 mg PO DAILY MOOD 05/15/23 12/04/23 History release meloxicam 15 mg tablet 15 mg PO DAILY Pain 05/15/23 12/04/23 History omeprazole 40 mg capsule,delayed 40 mg PO DAILY GERD 05/15/23 12/04/23 History release prednisone 20 mg tablet 20 mg PO BID #10 tabs 05/15/23 12/04/23 Rx tizanidine 4 mg tablet 4 mg PO BID Pain 05/15/23 12/04/23 History budesonide 160 mcg-glycopyr 9 2 puff inhalation BID Breathing 09/23/23 12/04/23 History mcg-formot 4.8 mcg/actuation HFA Problems inhaler (Breztri Aerosphere) ipratropium bromide 0.02 % 2.5 ml inhalation Q4HP PRN 09/23/23 12/04/23 History solution for inhalation Breathing Problems New Prescriptions to Start Prescriptions: Allergies Allergy/AdvReac Type Severity Reaction Status Date / Time No Known Allergies Allergy Verified 11/04/23 10:59 Assessment and Plan *Assessment and plan (1) Lumbar facet arthropathy: Status: Acute Category: Medical Code(s): M47.816 - Spondylosis without myelopathy or radiculopathy, lumbar region (2) DDD (degenerative disc disease), lumbar: Status: Acute Category: Medical Code(s): M51.36 - Other intervertebral disc degeneration, lumbar region Plan Patient is experiencing worsening pain throughout her low back and hips with limited range of motion and a positive Kemps test. I did discuss with the patient that she may benefit from a lumbar medial branch block bilaterally. Risk and benefits were discussed with patient and she would like to proceed forward with this plan of care. Patient has tried and failed conservative therapy including continued at home stretching and exercise for longer than 6 weeks. Patient has had physical therapy in the past however this made her symptoms worse and was just more recent that she attempted this. I will also send in a temporary 2-week dose of ropinirole 0.25 mg at bedtime. Patient will be scheduled for a lumbar MBB bilaterally L4-L5 and L5-S1 under fluoroscopy. Patient has been instructed to contact the clinic with any concerns before the next appointment. Dr. Ross has reviewed this note and agrees with this plan of care. This note was dictated using voice recognition software and make contain errors or omissions. All injections are used with Lidocaine or Bupivacaine and Depo Medrol.
== END 2023-12-04 23:59 | disposition home or self-care (01) ==
PROVIDERS: PCP Family Medicine; Visit Provider Nurse Practitioner Family
DX: M47.816 Spondylosis without myelopathy or radiculopathy, lumbar region (principal); M51.36 Other intervertebral disc degeneration, lumbar region
CPT/HCPCS: 99212; G0463

== ENCOUNTER 2024-01-10 10:34 | Outpatient (POV) | payer MEDICARE, OTHER, SELFPAY ==
[2024-01-10 11:44] VITALS: BP 171/90; PULSE 80; RESP 18; O2SAT 90; BMI 24.7
--- NOTE | 2024-01-10 13:22 | EXP.PAIN.SOA ---
[facility] Disclaimer: The information contained in this section may have been updated after the patient was seen, as this information can be updated by other users. Medical History (Updated 12/04/23 @ 09:52 by Tabatha Murphy APRN) COPD (chronic obstructive pulmonary disease) O2 dependent DDD (degenerative disc disease), lumbar Anxiety GERD (gastroesophageal reflux disease) HLD (hyperlipidemia) Depression HTN (hypertension) Surgical History Hx of cholecystectomy H/O tubal ligation Family History Other Heart disease Social History Smoking Status: Never smoker alcohol intake: never current occupational status: unemployed Travel in the last 8 weeks: None PM Subjective & Objective Subjective Subjective:: Patient is a pleasant 73-year-old female who presents today for denial of lumbar medial branch block. Today she rates her pain a 10 out of 10. Patient states she continues to have pain all across her low back and still denies any radiating symptoms into her lower extremity. Patient states the pain is constant and interferes with all activities of daily living including cooking and cleaning or even simple ambulation. Patient states the pain is miserable and that she would still like to proceed forward with the injections we discussed however that she did get a good barby estimates for these injections here at the hospital and that it was going to be over $3000 of her portion. Patient states that she cannot afford to do this and that the hospital did talk about that they could do a payment plan however that was all they stated available. Patient states that a payment plan is not in her capabilities for that amount for an injection that may or may not help. Her Marcello has been reviewed and is appropriate. Review of Systems: General: No recent weight changes, no fever, no sleep disturbances Respiratory: No cough, no shortness of air, no recurring pulmonary infections Cardiovascular/peripheral vascular: No chest pain, no palpitations, no edema, no shortness of breath Gastrointestinal: No new onset incontinence, normal bowel movements reported Genitourinary: No new onset incontinence Musculoskeletal: Low back pain Psychiatric: [Normal mood/affect] Neurological: [Denies weakness in extremities], [denies balance issues] Pain at rest (0-10 scale): 10 Objective Objective:: Physical Exam: General: Alert and oriented x3, no acute distress, pleasant and cooperative Lungs: Respirations even and unlabored, symmetrical chest expansion Eyes: PERRL Musculoskeletal: Flexion and extension of lumbar [spine] somewhat guarded secondary to pain, [antalgic gait noted] positive Kemps test Neurological: Speech clear, no gross sensory deficit FINDINGS: There are mild endplate compression fractures of uncertain age at L2, L3, and L4. Moderate levoscoliosis is identified. The bones are osteopenic. IMPRESSION: Age indeterminate mild compression fractures. MR follow-up may be considered. Reviewed, Interpreted and Dictated by Delio Menchaca MD Transcribed by Jaclyn Monsivais Authenticated and [facility] Has patient had previous pain injection?: No Conservative treatment options previously tried: Home exercise plan Length of treatment: Longer than 12 weeks Meds Home Medications and Allergies Home Medications ?Medication ?Instructions ?Recorded ?Confirmed ?Type albuterol sulfate 90 mcg/actuation 2 inh inhalation QIDP PRN 05/15/23 01/10/24 History aerosol inhaler Breathing Problems atorvastatin 40 mg tablet 40 mg PO DAILY High Cholesterol 05/15/23 01/10/24 History clonazepam 0.5 mg tablet 0.5 mg PO TIDP PRN Anxiety 05/15/23 01/10/24 History duloxetine 60 mg capsule,delayed 60 mg PO DAILY MOOD 05/15/23 01/10/24 History release meloxicam 15 mg tablet 15 mg PO DAILY Pain 05/15/23 01/10/24 History omeprazole 40 mg capsule,delayed 40 mg PO DAILY GERD 05/15/23 01/10/24 History release tizanidine 4 mg tablet 4 mg PO BID Pain 05/15/23 01/10/24 History budesonide 160 mcg-glycopyr 9 2 puff inhalation BID Breathing 09/23/23 01/10/24 History mcg-formot 4.8 mcg/actuation HFA Problems inhaler (Breztri Aerosphere) ipratropium bromide 0.02 % 2.5 ml inhalation Q4HP PRN 09/23/23 01/10/24 History solution for inhalation Breathing Problems ropinirole 0.25 mg tablet 0.25 mg PO HS #14 tabs 12/04/23 01/10/24 Rx tramadol 50 mg tablet 50 mg PO BID PRN pain #28 tabs 01/10/24 Rx New Prescriptions to Start Prescriptions: tramadol Tabatha Murphy Allergies Allergy/AdvReac Type Severity Reaction Status Date / Time No Known Allergies Allergy Verified 11/04/23 10:59 Assessment and Plan *Assessment and plan (1) DDD (degenerative disc disease), lumbar: Status: Acute Category: Medical Code(s): M51.36 - Other intervertebral disc degeneration, lumbar region (2) Lumbar facet arthropathy: Status: Acute Category: Medical Code(s): M47.816 - Spondylosis without myelopathy or radiculopathy, lumbar region (3) Chronic pain syndrome: Status: Acute Category: Medical Code(s): G89.4 - Chronic pain syndrome Plan Patient is experiencing significant pain throughout her low back with limited range of motion and a positive Kemps test. I will order the patient a lumbar x-ray with the plan to order advanced imaging to follow. Patient agrees with this plan of care. I did discuss with the patient due to her severe pain that we can still see about doing these injections and that I can send her to the [facility] location and that the charge would not be as extensive. We will reach out to this location to get her a par[place] estimate. Patient agrees with this plan of care. Patient has tried and failed conservative therapies such as oral medication, heat and ice, topicals, continued at home exercising and stretching for longer than 12 weeks. Patient will be submitted for lumbar medial branch block bilaterally L4-L5 and L5-S1 under fluoroscopy at the [place] location. Patient did have her x-ray imaging with compression fractures noted of unknown age. We will contact the patient to give her an update on this and go ahead and get an MRI submitted without contrast. I will send in a 2-week dose of tramadol 50 mg twice daily. Patient has been instructed to contact the clinic with any concerns before the next appointment. Dr. Ross has reviewed this note and agrees with this plan of care. This note was dictated using voice recognition software and make contain errors or omissions. All injections are used with Lidocaine or Bupivacaine and Depo Medrol.
== END 2024-01-10 23:59 | disposition home or self-care (01) ==
PROVIDERS: PCP Family Medicine; Visit Provider Nurse Practitioner Family
DX: M51.36 Other intervertebral disc degeneration, lumbar region (principal); M47.816 Spondylosis without myelopathy or radiculopathy, lumbar region; G89.4 Chronic pain syndrome
CPT/HCPCS: 99212; G0463

== ENCOUNTER 2024-01-10 12:02 | Outpatient (CLI) | payer MEDICARE, OTHER, SELFPAY ==
--- NOTE | 2024-01-10 12:08 | XR_ITS ---
FINAL REPORT TECHNIQUE: 5 views CLINICAL HISTORY: LBP FINDINGS: There are mild endplate compression fractures of uncertain age at L2, L3, and L4. Moderate levoscoliosis is identified. The bones are osteopenic. IMPRESSION: Age indeterminate mild compression fractures. MR follow-up may be considered. Reviewed, Interpreted and Dictated by Delio Menchaca MD Transcribed by Jaclyn Monsivais Authenticated and [facility]
== END 2024-01-10 23:59 | disposition home or self-care (01) ==
LOC: RAD 12:04
PROVIDERS: PCP Family Medicine; Visit Provider Nurse Practitioner Family
DX: M51.36 Other intervertebral disc degeneration, lumbar region (principal); M47.816 Spondylosis without myelopathy or radiculopathy, lumbar region; G89.4 Chronic pain syndrome
CPT/HCPCS: 72110; 99212; G0463

== ENCOUNTER 2024-01-23 09:11 | Outpatient (CLI) | payer MEDICARE, OTHER, SELFPAY ==
--- NOTE | 2024-01-23 | MR_ITS ---
FINAL REPORT CLINICAL HISTORY: .LOW BACK PAIN FINDINGS: Multiplanar MR imaging of the lumbar spine was performed without contrast. There is motion on many of the images which decreases the sensitivity of the exam. On the sagittal T2-weighted images, disc degeneration is seen at multiple levels. Levoscoliosis is noted. No bony mass is identified. There are mild chronic fractures at L2, L3, L4, and L5. The conus has an unremarkable appearance. L1-2: There is no significant central canal stenosis or neuroforaminal narrowing. L2-3: An annular bulge is present. There is mild bilateral neuroforaminal narrowing. There is no significant central canal stenosis. L3-4: There is an annular disc bulge with facet arthropathy and vertebral osteophytes. There is mild right neuroforaminal narrowing. There is no significant central canal stenosis. L4-5: An annular bulge is present. There is mild left neuroforaminal narrowing. There is no significant central canal stenosis. L5-S1: There is facet arthropathy. There is mild left neuroforaminal narrowing. There is no significant central canal stenosis. IMPRESSION: Multilevel degenerative disc disease with mild neuroforaminal narrowing. Mild chronic fractures of L2, L3, L4, and L5. Reviewed, Interpreted and Dictated by Daniel Oneill III, MD Transcribed by Jolanta Nino Authenticated and [facility]
== END 2024-01-23 23:59 | disposition home or self-care (01) ==
LOC: RAD 09:11
PROVIDERS: PCP Family Medicine; Visit Provider Nurse Practitioner Family
DX: M54.50 Low back pain, unspecified (principal)
CPT/HCPCS: 72148